=== PATIENT | female | born 1970 | race Caucasian/White ===

== ENCOUNTER → 2023-06-15 07:06 | Outpatient (REF) | payer OTHER, SELFPAY | LOC: WDC 07:06 | PROVIDERS: ATTENDING PHYSICIAN Physician Assistant | DX: Z12.31 Encounter for screening mammogram for malignant neoplasm of breast (principal); Z12.39 Encounter for other screening for malignant neoplasm of breast; Z80.3 Family history of malignant neoplasm of breast | CPT/HCPCS: 77063; 77067 ==

== ENCOUNTER → 2023-08-31 06:52 | Outpatient (REF) | payer OTHER, SELFPAY | LOC: RAD 06:52 | PROVIDERS: ATTENDING PHYSICIAN Physician Assistant | DX: R74.8 Abnormal levels of other serum enzymes (principal) | CPT/HCPCS: 76700 ==

== ENCOUNTER → 2024-01-19 14:38 | Outpatient (REF) | payer OTHER, SELFPAY | LOC: WDC 14:38 | PROVIDERS: ATTENDING PHYSICIAN Obstetrics & Gynecology Gynecology; FAMILY PHYSICIAN Physician Assistant | DX: R92.2 Inconclusive mammogram (principal); Z80.3 Family history of malignant neoplasm of breast | CPT/HCPCS: 76641 ==

== ENCOUNTER 2024-06-12 06:23 | Day surgery (SDC) | payer OTHER, SELFPAY | END 2024-06-12 09:34 | disposition home or self-care (01) | LOC: GI 06:23 | PROVIDERS: ATTENDING PHYSICIAN Internal Medicine | DX: R76.8 Other specified abnormal immunological findings in serum (principal); K31.819 Angiodysplasia of stomach and duodenum without bleeding; K22.89 Other specified disease of esophagus; K31.89 Other diseases of stomach and duodenum; K29.50 Unspecified chronic gastritis without bleeding; K90.0 Celiac disease | CPT/HCPCS: 43239; 88305; 88342 ==

== ENCOUNTER → 2024-07-18 15:50 | Outpatient (REF) | payer OTHER, SELFPAY | LOC: WDC 15:50 | PROVIDERS: ATTENDING PHYSICIAN Obstetrics & Gynecology Gynecology; FAMILY PHYSICIAN Physician Assistant | DX: Z12.31 Encounter for screening mammogram for malignant neoplasm of breast (principal) | CPT/HCPCS: 77063; 77067 ==

== ENCOUNTER → 2024-11-14 07:48 | Outpatient (REF) | payer OTHER, SELFPAY | LOC: RAD 07:48 | PROVIDERS: ATTENDING PHYSICIAN Internal Medicine; FAMILY PHYSICIAN Physician Assistant | DX: K90.0 Celiac disease (principal) | CPT/HCPCS: 77080 ==